=== PATIENT | female | born 1945 | race Caucasian/White ===

== ENCOUNTER → 2016-08-10 | Outpatient (CLI) | payer MEDICARE | LOC: COL.LAB 09:17 | DX: Z96.652 Presence of left artificial knee joint (principal); Z96.649 Presence of unspecified artificial hip joint ==

== ENCOUNTER 2017-08-28 12:58 | Day surgery (SDC) | payer MEDICARE ==
[~2017-08-28] VITALS: Ht 160 cm; Wt 75.1 kg
[2017-08-28 13:54] VITALS: BP 180/72; PULSE 57; TEMP 97.2
[2017-08-28] MEDS ORDERED: SINGULAIR 110 MG/TAB PO (13:58)
[2017-08-28] MEDS ORDERED: VENTOLIN0.09 MG IH (13:59)
[2017-08-28] MEDS ORDERED: GENTLE LAXATIVE5 MG PO (14:05)
[2017-08-28] MEDS ORDERED: ZYRTEC10MGSGL PO (14:06)
[2017-08-28] MEDS ORDERED: ZIAC 5/6.25MG T1 TAB PO (14:06)
[2017-08-28] MEDS ORDERED: FLONASE NASAL S16 GM NS (14:07)
[2017-08-28] MEDS ORDERED: SYNTHROID0.1 MG/TAB PO (14:07)
[2017-08-28] MEDS ORDERED: FLOVENT 220MCG7.9 GM IH (14:07)
[2017-08-28] MEDS ORDERED: MEVACOR40 MG PO (14:08)
[2017-08-28] MEDS ORDERED: PRILOSEC 20MG20 MG PO (14:08)
[2017-08-28] MEDS ORDERED: EFFEXOR-XR150 MG PO (14:09)
[2017-08-28] MEDS ORDERED: ISOPTIN SR240 MG PO (14:09)
[2017-08-28] MEDS ORDERED: VITAMIN D 1001000 IU PO (14:10)
[2017-08-28] MEDS ORDERED: FIBERCON PO (14:11)
[2017-08-28 15:03] VITALS: BP 140/83; PULSE 70; TEMP 97.5
[2017-08-28 15:15] VITALS: BP 150/72; PULSE 64
[2017-08-28 15:33] VITALS: BP 145/61; PULSE 64
[2017-08-28 15:48] VITALS: BP 167/71; PULSE 64
== END 2017-08-28 16:05 | disposition home or self-care (01) ==
LOC: SDCO 12:58
DX: K21.9 Gastro-esophageal reflux disease without esophagitis (principal); K92.1 Melena; J45.909 Unspecified asthma, uncomplicated; E78.00 Pure hypercholesterolemia, unspecified; I10 Essential (primary) hypertension; K59.00 Constipation, unspecified; Z96.659 Presence of unspecified artificial knee joint; Z88.0 Allergy status to penicillin; Z88.2 Allergy status to sulfonamides; Z88.6 Allergy status to analgesic agent; Z90.710 Acquired absence of both cervix and uterus; Z90.49 Acquired absence of other specified parts of digestive tract; Z87.891 Personal history of nicotine dependence
CPT/HCPCS: J2250; J3010; J7030

== ENCOUNTER → 2018-07-08 | Outpatient (CLI) | payer MEDICARE ==
[~2018-07-08] MED LIST: EFFEXOR-XR150 MG PO; FIBERCON PO; FLONASE NASAL S16 GM NS; FLOVENT 220MCG7.9 GM IH; GENTLE LAXATIVE5 MG PO; ISOPTIN SR240 MG PO; MEVACOR40 MG PO; PRILOSEC 20MG20 MG PO; SINGULAIR 110 MG/TAB PO; SYNTHROID0.1 MG/TAB PO; VENTOLIN0.09 MG IH; VITAMIN D 1001000 IU PO; ZIAC 5/6.25MG T1 TAB PO; ZYRTEC10MGSGL PO
== END ==
LOC: COL.RAD 12:54
DX: M53.3 Sacrococcygeal disorders, not elsewhere classified (principal)
CPT/HCPCS: G0260; J3301

== ENCOUNTER → 2018-07-22 | Outpatient (CLI) | payer MEDICARE | LOC: COL.RAD 07:17 | DX: M48.02 Spinal stenosis, cervical region (principal) | CPT/HCPCS: A9585 ==

== ENCOUNTER → 2018-09-10 | Outpatient (CLI) | payer MEDICARE ==
[2018-09-10 10:06] LABS: BASO % 0.6 % (0.0-2.0); EOS # 0.1 (0.0-0.7); EOS % 1.6 % (0-4.0); GRAN # 4.4 (1.4-6.5); GRAN % 70.8 % (42.2-75.2); HEMATOCRIT 40.5 % (37.0-47.0); HEMOGLOBIN 13.2 g/dl (12.5-16.0); LYMPH # 1.2 (1.2-3.4); LYMPH % 19.6 % (20.0-51.0); MEAN CELL VOLUME 96 fl (80.0-100.0); MEAN CORPUSCULAR HEMOGLOBIN 31 pg (27.0-31.0); MEAN CORPUSCULAR HGB CONC 33 g/dl (33.0-37.0); MEAN PLATELET VOLUME 9.4 fl (7.4-10.4); MONO # 0.4 (0.1-0.6); MONO % 6.1 % (1.7-9.3); PLATELET COUNT 233 K/mm3 (130-400); RED BLOOD COUNT 4.23 M/mm3 (4.10-5.30); REDCELL DISTRIBUTION WIDTH-CV 14.5 % (11.5-14.5)
[2018-09-10 10:09] LABS: PROTHROMBIN TIME 11.2 SECONDS (9.7-12.8)
[2018-09-10 10:17] LABS: ALBUMIN 4.3 gm/dL (3.5-5.0); BILIRUBIN,TOTAL 0.5 mg/dL (0.0-1.0); CALCIUM 9.5 mg/dL (8.4-10.2); CREATININE, serum 0.83 (0.52-1.25); POTASSIUM 4.3 mmol/L (3.4-5.0); TOTAL PROTEIN 7.5 gm/dL (6.4-8.2)
== END ==
LOC: COL.CARD 08:19
PROVIDERS: Neurological Surgery
DX: M48.02 Spinal stenosis, cervical region (principal)

== ENCOUNTER → 2018-12-08 | Outpatient (CLI) | payer MEDICARE ==
[2018-12-08 09:53] LABS: BASO % 0.6 % (0.0-2.0); EOS # 0.1 (0.0-0.7); GRAN # 3.2 (1.4-6.5); GRAN % 63.3 % (42.2-75.2); HEMATOCRIT 40.1 % (37.0-47.0); HEMOGLOBIN 12.9 g/dl (12.5-16.0); LYMPH # 1.4 (1.2-3.4); LYMPH % 28.3 % (20.0-51.0); MEAN CELL VOLUME 94 fl (80.0-100.0); MEAN CORPUSCULAR HEMOGLOBIN 30 pg (27.0-31.0); MEAN CORPUSCULAR HGB CONC 32 g/dl (33.0-37.0); MEAN PLATELET VOLUME 9.8 fl (7.4-10.4); MONO # 0.3 (0.1-0.6); MONO % 5.4 % (1.7-9.3); PLATELET COUNT 234 K/mm3 (130-400); RED BLOOD COUNT 4.26 M/mm3 (4.10-5.30); REDCELL DISTRIBUTION WIDTH-CV 13.6 % (11.5-14.5)
[2018-12-08 09:54] LABS: PROTHROMBIN TIME 11.1 SECONDS (9.7-12.8)
[2018-12-08 09:56] LABS: PARTIAL THROMBOPLASTIN TIME 31.1 SECONDS (26.0-37.0)
[2018-12-08 10:05] LABS: ALBUMIN 4.4 gm/dL (3.5-5.0); BILIRUBIN,TOTAL 0.5 mg/dL (0.0-1.0); CALCIUM 9.4 mg/dL (8.4-10.2); CREATININE, serum 0.75 (0.52-1.25); TOTAL PROTEIN 7.2 gm/dL (6.4-8.2)
== END ==
LOC: COL.LAB 09:19
PROVIDERS: Neurological Surgery
DX: M48.061 Spinal stenosis, lumbar region without neurogenic claudication (principal)